=== PATIENT | male | born 1965 | race Caucasian/White ===

== ENCOUNTER → 2023-08-11 10:17 | Outpatient (REF) | payer BC, SELFPAY | LOC: DHCBS MAIN 10:17 | PROVIDERS: ATTENDING PHYSICIAN Internal Medicine Cardiovascular Disease; FAMILY PHYSICIAN Family Medicine | DX: R94.31 Abnormal electrocardiogram [ECG] [EKG] (principal); R06.09 Other forms of dyspnea | CPT/HCPCS: 93306 ==

== ENCOUNTER 2024-02-25 10:41 | Emergency (ER) | payer BC, SELFPAY ==
[2024-02-25 10:51] VITALS: BP 114/75
--- NOTE | 2024-02-25 11:49 | ED.GENMED ---
History of Present Illness
General
Chief Complaint: Chest Pain
Source: patient
Exam Limitations: none
Time Seen by Provider: 02/25/24 11:36
Nursing documentation reviewed up to this point in time: agreed with
History of Present Illness
History of Present Illness:
pt is a 58 y/o M
h/o hypotension
here with pleuritic cp x 30 hours
says it started all of a sudden
he has a pain with deep breathing
no fever, chills
has had a very minor cough but nothing productive
no recent long travel, leg swelling, previous dvt/pe
no resting or exertional sob
ches tpain is also worse with changing positions
pt thought it would get better, thought it was muscular
Past History
Past History
ED Past Medical History: None and Psychiatric (PTSD)
ED Past Surgical History: None
Social History
Tobacco: Non-smoker
Alcohol: None
Living: with family
Review of Systems
Review of Systems
Allergies reviewed?: Yes
All Other Systems: Not applicable
Phy Exam
Physical Exam
Physical Exam:
GENERAL: Alert , in no apparent distress
EYE: pupils equal and reactive
NECK: Supple
ENT: o/p clr, mmm.
CARDIAC: Regular rate and rhythm .no murmur appreciated
LUNGS: faint end exp wheeze R base, no acute respiratory distress, no rales/rhonchi
ABDOMEN: Soft, without focal tenderness, no r/g, no cvat, normal bowel sounds
NEUROLOGICAL: Alert and oriented, no focal neuro deficits
SKIN: Warm and dry, skin intact.
MUSCULOSKELETAL: No edema, well perfused. neg raya's sign
PSYCH: Normal and appropriate interaction.
Scores
Heart Score for Chest Pain Patients
STEMI patient?: No
History: Slightly or Non-Suspicious
ECG: Normal
Age: >45 - <65 years
Risk Factors: No Risk Factors
Troponin: </= Normal Limit
Heart Score for Chest Pain Patients: 1
Heart Score Risk: 2.5% MACE over next 6 weeks
Course
Orders/Labs/Results
Orders:
Orders
02/25/24 10:43
ECG [Electrocardiogram (*1)] Urgent
Reason for Study: Chest Pain
EKG- Treatment ONCE
02/25/24 11:49
CT Chest Pe Study Urgent
Comment:
Reason For Exam: pleuritic cp to back for 1.5 days
02/25/24 11:58
Complete Blood Count/With Diff Urgent
Comprehensive Metabolic Panel Urgent
NT-proBNP Urgent
PTT Urgent
Prothrombin Time Urgent
Troponin I Urgent
02/25/24 14:02
Ketorolac [Toradol] 30 mg IV NOW STA
02/25/24 14:15
COVID-19 Antigen Urgent
Source: Nasal Swab
Influenza A+B Rapid Molecular Urgent
ELIO Source: Nasal Swab
Specimen Description:
Abnormal Lab Results
02/25/24
11:58
RBC 4.67 L 10^6/uL
(4.70-6.10)
BUN 21 H mg/dl
(9-20)
02/25/24 11:58
02/25/24 11:58
Vital Signs
Initial and Last Documented VS:
Initial Vital Signs
Temp Pulse Resp BP Pulse Ox
98.4 F 68 18 114/75 100
02/25/24 10:51 02/25/24 10:51 02/25/24 10:51 02/25/24 10:51 02/25/24 10:51
Last Documented Vital Signs
Temp Pulse Resp BP Pulse Ox
98.4 F 56 17 115/74 98
02/25/24 10:51 02/25/24 14:15 10/04/24 14:15 02/25/24 14:06 02/25/24 12:45
MDM/Problems Addressed
Differential Diagnosis Includes:
pleurisy, PE, pleural effusion, acs
MDM/Problems Addressed:
58 y/o M
chronic low bp
here with pleuritic cp x 1.5 days
no recent illness
no cough
pain is worse only with deep breathing
not exertional, no SOB at rest
no fever
well appearing
does appera to be splinting on exam
faint end exp wheeze right base heard
nornmal pulse ox
no recenT pe rf
ekg sinus iván, no ischemic changes
no murmur on exam
labs are unremarkable
trop neg
ct PE unremarkable, no pleural effusion, no pericardial effusion, no PE
likely pleurisy
d/w ed attending who agrees
unlikely to be ACS given lack of exertional symptoms, sob, but with sypmtoms > 1 day would have expected troponin to bump in setting of acs or myocarditis/pericarditis
*Critical Care Note
Total Time (30-74mins, 75-104mins- exclusive of procedures): Not Applicable
ED Attending Note
-
Portions of this chart may have been created with voice recognition software.� Occasional wrong word or��sound alike� substitutions may have occurred due to the inherent limitations of voice recognition software.
Discharge Plan
Departure
Patient Disposition: Home (Routine Discharge)
Date of Disposition: 02/25/24
Time of Disposition: 14:42
Patient with high blood pressure during this ER visit?: No
Condition: Fair
Covid-19: Not Applicable
Discharge Problem:
Pleurisy
Instructions: Pleuritic Chest Pain (DC), Pleurisy
Prescriptions:
New
ibuprofen 600 mg tablet
600 mg PO Q8H PRN (Reason: Pain) Qty: 15 0RF
No Action
clonazepam [Klonopin] 0.5 mg Tablet
0.5 mg PO DAILY
Referrals:
Laci Hastings, [Family Provider] - Follow up in 2-3 days
Stand Alone Forms: Return to Work
Activity Restrictions/Additional Instructions:
YOUR PAIN COULD BE FROM INFLAMMATION OF YOUR LUNG - THERE ARE NO URGENT FINDINGS ON BLOOD WORK, CAT SCAN, EKG
YOU HAD NO SIGN OF BLOOD CLOT, HEART ATTACK, FLUIDS AROUND YOUR HEART OR IN YOUR LUNG
WE WILL PRESUME THIS IS SOME INFLAMMATIO NOF THE LINING OF THE LUNG AND IT IS BEST TREATED WITH ANTI INFLAMMATORIES
TAKE MOTRIN 600 MG 2-3 TIMES A DAY FOR 3-5 DAYS WITH FOOD
SEE YOUR DOCTOR WEDNESDAY
RETURN FOR WORSE SYTMPTOMS:
SHORTNESS OF BREATH, WORSE PAIN, FEVER, COUGH, PASSING OUT OR ANY CONCERNS.
Interventions
Interventions:
*Risk Screen - Suicide Last Done: 02/25/24 10:51
*General Assessment Last Done: 02/25/24 10:51
*Neglect/Abuse Screening Last Done: 02/25/24 10:51
ED- Fall Risk Assessment Last Done: 02/25/24 11:51
*ED COVID-19 Vaccine History Last Done: 02/25/24 11:50
*Nursing Disposition Last Done: 02/25/24 15:04
ED- Cardiac Assessment Last Done: 02/25/24 12:01
Discharge Date and Time
Discharge Date/Time: 02/25/24 15:04
Print Language: WELSH
[2024-02-25 12:00] VITALS: BP 101/69; BP 163/90
[2024-02-25 12:07] LABS: % Basophils 0.8 % (0-2); % Eosinophils 1.6 % (0-6); % Immature Granulocytes 0.3 % (0-0.5); % Lymphocytes 31.4 % (20.5-51.1); % Monocytes 6.5 % (1.7-9.3); % Neutrophils 59.4 % (42.2-75.2); Absolute Basophils 0.1 10^3/uL (0-0.2); Absolute Eosinophils 0.1 10^3/uL (0-0.7); Absolute Monocytes 0.4 10^3/uL (0.1-0.6); Absolute Neutrophils 3.7 10^3/uL (1.4-6.5); Hemoglobin 13.9 g/dL (13.0-18.0); Mean Corp Hgb Conc. 33.9 g/dL (33.0-37.0); Mean Corpuscular Hgb 29.8 pg (27.0-31.0); Mean Corpuscular Volume 87.8 fL (80.0-94.0); Mean Platelet Volume 9.8 fL (7.4-10.4); Nucleated Red Blood Cells % 0 % (-); Platelet Count 224 10^3/uL (130-400); Red Blood Cell Count 4.67 10^6/uL (4.70-6.10); Red Cell Dist. Width 13.3 % (11.5-14.5); White Blood Cell Count 6.3 10^3/uL (4.8-10.8)
[2024-02-25 12:17] LABS: APTT 27.6 Sec (23.4-35.0); INR 1.02; PT 13.2 Sec (11.4-14.6)
[2024-02-25 12:18] LABS: ALT (SGPT) 18 U/L (0-50); AST (SGOT) 25 U/L (17-59); Albumin 4.4 g/dl (3.5-5.0); Alkaline Phosphatase 51 U/L (38-126); Blood Urea Nitrogen 21 mg/dl (9-20); Calcium 9.9 mg/dl (8.4-10.2); Carbon Dioxide 28 mmol/L (22-30); Chloride 103 mmol/L (98-107); Glucose 92 mg/dl (70-99); Potassium 4.5 mmol/L (3.5-5.1); Sodium 140 mmol/L (135-145); Total Bilirubin 0.8 mg/dl (0.2-1.3); Total Protein 6.9 g/dl (6.3-8.2); eGFR > 60.00
[2024-02-25 12:30] LABS: NT-proBNP < 20.0 pg/ml; Troponin I < 0.012 ng/ml
[2024-02-25 13:07] VITALS: BP 105/70
[2024-02-25 14:06] VITALS: BP 115/74
[2024-02-25] MEDS: TORADOL 30 MG IV (14:07)
[2024-02-25 14:39] LABS: COVID-19 Antigen Negative (Negative)
== END 2024-02-25 15:04 | disposition home or self-care (01) ==
LOC: EMR 10:41
PROVIDERS: Physician Assistant; EMERGENCY PHYSICIAN Emergency Medicine; FAMILY PHYSICIAN Family Medicine
DX: R09.1 Pleurisy (principal); Z11.52 Encounter for screening for COVID-19; F43.10 Post-traumatic stress disorder, unspecified; F41.9 Anxiety disorder, unspecified; F17.210 Nicotine dependence, cigarettes, uncomplicated
CPT/HCPCS: 99285; 96374; 71275; 80053; 83880; 84484; 85025; 85610; 85730; 87502; 87811; 93005; Q9967

== ENCOUNTER → 2024-06-28 11:10 | Outpatient (REF) | payer BC, SELFPAY | LOC: RAD 11:10 | PROVIDERS: ATTENDING PHYSICIAN Family Medicine | DX: J40 Bronchitis, not specified as acute or chronic (principal) | CPT/HCPCS: 71046 ==

== ENCOUNTER 2025-04-13 11:18 | Emergency (ER) | payer BC, SELFPAY ==
[2025-04-13 11:19] VITALS: BP 114/65
--- NOTE | 2025-04-13 12:22 | ED.GENMED ---
History of Present Illness
<Chair Jara MD, Resident - Last Filed: 04/13/25 16:00>
General
Chief Complaint: Headache
Source: patient
Exam Limitations: none
Time Seen by Provider: 04/13/25 12:08
Nursing documentation reviewed up to this point in time: agreed with
History of Present Illness
History of Present Illness:
59yo M with no significant PMH presents with subacute throbbing parieto-temporal headaches.
About 9 days ago, pt began experiencing headaches that present as rapid throbbing/pulsing pain in the parietal region of the head, spreading to temporal region. Sx come in bursts and are present roughly 80% of the time. He has no hx of migraines. He
has never had a PACKER like this. Endorses nausea but denies vomiting. Denies blurry vision or vertigo. Endorses light sensitivity. Endorses some chills and recent episodes of sweating profusely at night. Endorses period during the past few days with
intermittent rhinorrhea and tearing of both eyes. Endorses feeling jittery/shaky. Takes BP at home, has been 120s/80s but states that it's typically 90s systolic. Denies palpitations. Denies any recent changes to meds. Denies any illicit drug use.
Uses marijuana and smokes cigarettes; no recent changes to habits. Has just been taking advil for pain, last dose 10hr ago. Unintentional weight loss months ago which was f/u by colonoscopy which was normal.
Past History
<Chari Jara MD, Resident - Last Filed: 04/13/25 16:00>
Past History
ED Past Medical History: None and Psychiatric (PTSD)
ED Past Surgical History: None
Social History
Tobacco: Non-smoker
Alcohol: None
Living: with family
Review of Systems
<Chari Jara MD, Resident - Last Filed: 04/13/25 16:00>
Review of Systems
Allergies reviewed?: Yes
All Other Systems: ROS reviewed and negative except as documented in HPI and ROS
Constitutional: Reports night sweats and chills
EENT: Reports tearing and runny nose
Respiratory: Reports no symptoms
Cardiac: Reports no symptoms
ABD/GI: Reports nausea
: Reports no symptoms
Musculoskeletal: Reports no symptoms
Skin: Reports no symptoms
Neurological: Reports headache
Psychiatric: Reports no symptoms
Phy Exam
<Chari Jara MD, Resident - Last Filed: 04/13/25 16:00>
General Physical Exam
General Presentation: moderate distress
General age: appears stated age
General Skin: warm and dry
General Habitus: normal
General Mental: alert
ENT Exam
ENT Exam: EOMI
Cardiovascular Exam
Cardiovascular Exam: regular rate/rhythm
Pulmonary Exam
Pulmonary Exam: no respiratory distress
Gastrointestinal Exam
Gastrointestinal Exam: non distended
Neurological Exam
Neurological Exam: alert
Musculoskeletal Exam
Musculoskeletal Exam: full ROM and no edema
Skin Exam
Skin Exam: normal color
Psychiatric Exam
Psychiatric Exam: normal mood/affect
Course
<Chari Jara MD, Resident - Last Filed: 04/13/25 16:00>
Orders/Labs/Results
Orders:
Orders
04/13/25 11:23
EKG [Electrocardiogram (*1)] Urgent
Reason for Study: Fatigue / Weakness
EKG- Treatment ONCE
04/13/25 12:46
CT Head Angio W/wo Iv Contrast Urgent
Comment:
Reason For Exam: pulsating headache
Diphenhydramine [Benadryl] 25 mg IV NOW STA
Ketorolac [Toradol] 30 mg IV NOW STA
Metoclopramide [Reglan] 10 mg IV NOW STA
04/13/25 12:53
0.9% Sodium Chloride 1000 ml [Nss] 1,000 ml IV BOLUS
04/13/25 13:00
Complete Blood Count/With Diff Urgent
Comprehensive Metabolic Panel Urgent
Manual Differential Urgent
TSH Reflex To Free T4 Urgent
Abnormal Lab Results
04/13/25
13:00
Segmented Neutrophils 41 L %
(42-75)
Band Neutrophils 7 H %
(0-3)
Sodium 132 L mmol/L
(135-145)
Carbon Dioxide 31 H mmol/L
(22-30)
ALT 60 H U/L
(0-50)
04/13/25 13:00
04/13/25 13:00
Vital Signs
Initial and Last Documented VS:
Initial Vital Signs
Temp Pulse Resp BP Pulse Ox
99.2 F 111 16 114/65 98
04/13/25 11:19 04/13/25 11:19 04/13/25 11:19 04/13/25 11:19 04/13/25 11:19
Last Documented Vital Signs
Temp Pulse Resp BP Pulse Ox
99.2 F 65 19 104/65 99
04/13/25 11:19 04/13/25 15:39 04/13/25 15:39 04/13/25 15:39 04/13/25 15:39
<Darius De La Rosa, DO - Last Filed: 04/13/25 12:54>
Orders/Labs/Results
Orders:
Orders
04/13/25 11:23
EKG [Electrocardiogram (*1)] Urgent
Reason for Study: Fatigue / Weakness
EKG- Treatment ONCE
04/13/25 12:46
CT Head Angio W/wo Iv Contrast Urgent
Comment:
Reason For Exam: pulsating headache
Diphenhydramine [Benadryl] 25 mg IV NOW STA
Ketorolac [Toradol] 30 mg IV NOW STA
Metoclopramide [Reglan] 10 mg IV NOW STA
04/13/25 12:53
0.9% Sodium Chloride 1000 ml [Nss] 1,000 ml IV BOLUS
04/13/25 13:00
Complete Blood Count/With Diff Urgent
Comprehensive Metabolic Panel Urgent
Manual Differential Urgent
TSH Reflex To Free T4 Urgent
Abnormal Lab Results
04/13/25
13:00
Segmented Neutrophils 41 L %
(42-75)
Band Neutrophils 7 H %
(0-3)
Sodium 132 L mmol/L
(135-145)
Carbon Dioxide 31 H mmol/L
(22-30)
ALT 60 H U/L
(0-50)
04/13/25 13:00
04/13/25 13:00
Vital Signs
Initial and Last Documented VS:
Initial Vital Signs
Temp Pulse Resp BP Pulse Ox
99.2 F 111 16 114/65 98
04/13/25 11:19 04/13/25 11:19 04/13/25 11:19 04/13/25 11:19 04/13/25 11:19
Last Documented Vital Signs
Temp Pulse Resp BP Pulse Ox
99.2 F 65 19 104/65 99
04/13/25 11:19 04/13/25 15:39 04/13/25 15:39 04/13/25 15:39 04/13/25 15:39
<Chari Jara MD, Resident - Last Filed: 04/13/25 16:00>
MDM/Problems Addressed
Differential Diagnosis Includes:
Ddx:
Cluster headache
Hyperthyroidism
Less likely:
AVM
Pheochromocytoma
Lymphoma
MDM/Problems Addressed:
Plan:
- TSH w reflex to T4
- CBC, BMP
- Toradol, reglan, benadryl
- CTA head
- Rec f/u w neurologist for detention ppx mgmt of cluster PACKER
<Chari Jara MD, Resident - Last Filed: 04/13/25 16:00>
*Pulse Oximetry
SaO2: 98
Oxygen Mode of Delivery: Room air
Patient hypoxic: no
*Critical Care Note
Total Time (30-74mins, 75-104mins- exclusive of procedures): Not Applicable
<Chari Jara MD, Resident - Last Filed: 04/13/25 16:00>
Update Note
Update Note:
TSH wnl
3:45pm: CTA head unremarkable
IMPRESSION: No significant vascular occlusion, aneurysm or dissection. No acute intracranial process.
Pt feeling much better after receiving medications, was able to sleep.
Discussed follow-up with neurologist for medication for cluster PACKER vs. migraines and recommended OTC excedrin/migraine meds in the meantime.
ED Attending Note
<Chari Jara MD, Resident - Last Filed: 04/13/25 16:00>
-
Portions of this chart may have been created with voice recognition software.� Occasional wrong word or��sound alike� substitutions may have occurred due to the inherent limitations of voice recognition software.
<Darius De La Rosa, DO - Last Filed: 04/13/25 12:54>
ED Attending Note
Patient seen and examined by attending physician: Yes
I performed a history and physical exam of patient and discussed management with resident, I reviewed resident's note and agree with documented findings and plan of care.: Yes
ED Attending Note:
I have seen and evaluated the patient with a [id number] encounter. I have spoken to the resident and involved in the medical history, the physical exam, medical decision making.
Evaluation and management service: agree unless noted differently below.
Results interpretation: agree unless noted differently below.
Focused HPI: 59-year-old male presenting for evaluation of intermittent headache over the past 9 days or so. Patient has been dealing with a headache intermittently and it is worse with exertion. Patient states he hears a whooshing sound in his
ear when the headache is worse
Physical exam: Sitting bed comfortably. Lights are off in the room due to photophobia. Pupils equal reactive
Medical Decision Making: Given the headache and the description, will obtain CT angiogram to rule out any evidence of AVM or bleed
Discharge Plan
Departure
Patient Disposition: Home (Routine Discharge)
Date of Disposition: 04/13/25
Time of Disposition: 15:58
Patient with high blood pressure during this ER visit?: No
Condition: Good
Covid-19: Not Applicable
Discharge Problem:
Headache
Instructions: Headache, Adult (DC)
Prescriptions:
No Action
clonazepam [Klonopin] 0.5 mg Tablet
0.5 mg PO DAILY
ibuprofen 600 mg tablet
600 mg PO Q8H PRN (Reason: Pain) Qty: 15 0RF
Referrals:
Stephan Larson MD [Active, Neurology]
Activity Restrictions/Additional Instructions:
Please return for any worsening symptoms.
You may return at any time if you have further concerns.
Please follow up with your doctor at the first available appointment, preferably this week.
Thank you for choosing [facility].
Interventions
Interventions:
*Risk Screen - Suicide Last Done: 04/13/25 11:19
*General Assessment Last Done: 04/13/25 13:19
*Neglect/Abuse Screening Last Done: 04/13/25 11:19
*ED- Fall Risk Assessment Last Done: 04/13/25 13:19
*ED COVID-19 Vaccine History Last Done: 04/13/25 13:19
*ED Influenza Vaccine History Last Done: 04/13/25 13:19
ED- Neurological Assessment Last Done: 04/13/25 13:17
Discharge Date and Time
Print Language: SPANISH
[2025-04-13] MEDS: TORADOL 30 MG IV (12:56)
[2025-04-13] MEDS: NSS 1000 IV (12:56)
[2025-04-13] MEDS: BENADRYL 25 MG IV (12:58)
[2025-04-13] MEDS: REGLAN 10 MG IV (12:58)
[2025-04-13 13:25] LABS: Hematocrit 41.3 % (39.0-52.0); Hemoglobin 13.8 g/dL (13.0-18.0); Mean Corp Hgb Conc. 33.4 g/dL (33.0-37.0); Mean Corpuscular Volume 87.9 fL (80.0-94.0); Platelet Count 204 10^3/uL (130-400); Red Cell Dist. Width 13.1 % (11.5-14.5)
[2025-04-13 13:26] LABS: ALT (SGPT) 60 U/L (0-50); AST (SGOT) 52 U/L (17-59); Albumin 3.9 g/dl (3.5-5.0); Alkaline Phosphatase 93 U/L (38-126); Blood Urea Nitrogen 12 mg/dl (9-20); Calcium 8.8 mg/dl (8.4-10.2); Carbon Dioxide 31 mmol/L (22-30); Chloride 98 mmol/L (98-107); Glucose 92 mg/dl (70-99); Potassium 3.9 mmol/L (3.5-5.1); Sodium 132 mmol/L (135-145); Total Protein 7.0 g/dl (6.3-8.2); eGFR > 60.00
[2025-04-13 13:58] LABS: Absolute Neutrophils -Man Diff 2.4 10^3/uL (1.4-6.5); Platelets Checked Yes
[2025-04-13 13:59] LABS: Normal RBC Morphology Yes; Total Cells Counted 100
[2025-04-13 15:39] VITALS: BP 104/65
== END 2025-04-13 16:16 | disposition home or self-care (01) ==
LOC: EMR 11:18
PROVIDERS: EMERGENCY PHYSICIAN Student in an Organized Health Care Education/Training Program
DX: R51.9 Headache, unspecified (principal); F43.10 Post-traumatic stress disorder, unspecified; F12.90 Cannabis use, unspecified, uncomplicated; F17.210 Nicotine dependence, cigarettes, uncomplicated
CPT/HCPCS: 99284; 96374; 96375 ×2; 96361 ×3; 70496; 80053; 84443; 85025; 93005; Q9967